=== PATIENT | female | born 1955 | race Caucasian/White ===

== ENCOUNTER 2018-08-27 07:54 | Day surgery (SDC) | payer BC ==
[~2018-08-27 07:54] MED LIST: LIDOCAINE HCL 1% MPF 30 SOL ONE; PROPOFOL 500 MG/50 ML EMU IV ONE
[2018-08-27 09:29] VITALS: BP 165/89; PULSE 77; RESP 20; TEMP 97.4; O2SAT 97
== END 2018-08-27 09:42 | disposition home or self-care (01) ==
LOC: SURG 07:54
PROVIDERS: ATTEND Surgery
DX: Z80.0 Family history of malignant neoplasm of digestive organs (principal); D12.0 Benign neoplasm of cecum
CPT/HCPCS: 99001; J2001; J2704